=== PATIENT | female | born 1950 | race Caucasian/White ===

== ENCOUNTER → 2018-04-24 | Outpatient (CLI) | payer MEDICARE, BC ==
--- NOTE | 2018-04-24 15:28 | RADIOLOGY REPORT (SQ) ---
EXAM DESCRIPTION: U/S RETROPERITON (RENAL/AORTA) COMPLETED DATE/TIME: 04/24/2018 3:12 pm REASON FOR STUDY: N18.3 CHRONIC KIDNEY DISEASE, STAGE 3 (MODERATE) N18.3 CHRONIC KIDNEY DISEASE, ST AGE 3 (MODERATE) COMPARISON: None. TECHNIQUE: Dynamic and static grayscale images acquired of the kidneys and bladder and recorded on P ACS. Additional selected color Doppler and spectral images recorded. LIMITATIONS: None. FINDINGS: RIGHT KIDNEY: Small, 8.4 cm. Cortical thinning. Normal echogenicity. No solid or suspicio us masses. Mild hydronephrosis. No calcifications. LEFT KIDNEY: Normal size, 9.9 cm. Normal echogenicity. No solid or suspicious masses. No hydronephr osis. No calcifications. BLADDER: No masses. Bilateral ureteral jets are seen. OTHER FINDINGS: No other significant finding. IMPRESSION: The right kidney is smaller with cortical thinning. There is mild hydronephrosis on the right. No other abnormality is seen. Bilateral ureteral jets are seen in the bladder. TECHNICAL DOCUMENTATION: JOB ID: [id number] [employer]- All Rights Reserved Reading location - IP/workstation name: [email or web address]
== END ==
LOC: RAD 16:29
PROVIDERS: ATTEND Internal Medicine Nephrology
DX: I12.9 Hypertensive chronic kidney disease with stage 1 through stage 4 chronic kidney disease, or unspecified chronic kidney disease (principal); N18.3 Chronic kidney disease, stage 3 (moderate); N13.30 Unspecified hydronephrosis
CPT/HCPCS: 76770

== ENCOUNTER → 2018-09-02 | Outpatient (CLI) | payer BC ==
--- NOTE | 2018-09-02 13:45 | RADIOLOGY REPORT (SQ) ---
EXAM DESCRIPTION: CT ABD/PELVIS NO ORAL OR IV COMPLETED DATE/TIME: 09/02/2018 1:05 pm REASON FOR STUDY: HYDRONEPHROSIS (N13.30) N13.30 UNSPECIFIED HYDRONEPHROSIS COMPARISON: None. TECHNIQUE: CT scan of the abdomen and pelvis performed without intravenous or oral contrast. Images reviewed with lung, soft tissue, and bone windows. Reconstructed coronal and sagittal MPR images revi ewed. All images stored on PACS. All CT scanners at this facility use dose modulation, iterative reconstruction, and/or weight based d osing when appropriate to reduce radiation dose to as low as reasonably achievable (ALARA). [facility]: Dose Right [facility]: CareDose [facility]: Dose Right [facility]: Teradose 4D [facility]: Interse RADIATION DOSE: CT Rad equipment meets quality standard of care and radiation dose reduction techniq ues were employed. CTDIvol: 2.5 mGy. DLP: 114 mGy-cm.mGy. LIMITATIONS: None. FINDINGS: LOWER CHEST: No significant findings. No nodules or infiltrates. NON-CONTRASTED LIVER, SPLEEN, ADRENALS: Evaluation limited by lack of IV contrast. No identified sign ificant masses. PANCREAS: No masses. No peripancreatic inflammatory changes. GALLBLADDER: Not visualized. RIGHT KIDNEY AND URETER: No suspicious masses. Assessment limited by lack of IV contrast. No signif icant calcifications. No hydronephrosis or hydroureter. LEFT KIDNEY AND URETER: No suspicious masses. Assessment limited by lack of IV contrast. Mild nephr ocalcinosis coronal image 47. No hydronephrosis or hydroureter. AORTA AND RETROPERITONEUM: No aneurysm. No retroperitoneal masses or adenopathy. BOWEL AND PERITONEAL CAVITY: No obvious masses or inflammatory changes. No free fluid. APPENDIX: Not visualized. PELVIS, BLADDER, AND ABDOMINAL WALL:No abnormal masses. No free fluid. Bladder normal. BONES: No significant findings. OTHER: No other significant finding. IMPRESSION: Mild nephrocalcinosis on the left. No ureteral or bladder calculi. COMMENT: Quality ID # [id number]: Final reports with documentation of one or more dose reduction techniques (e.g., Automated exposure control, adjustment of the mA and/or kV according to patient size, use of iterative reconstruction technique) TECHNICAL DOCUMENTATION: JOB ID: [id number] [employer]- All Rights Reserved Reading location - IP/workstation name: [email or web address]
== END ==
LOC: RAD 12:51
PROVIDERS: ATTEND Urology
DX: N13.30 Unspecified hydronephrosis (principal); E83.59 Other disorders of calcium metabolism; N29 Other disorders of kidney and ureter in diseases classified elsewhere
CPT/HCPCS: 74176

== ENCOUNTER 2018-09-19 13:08 | Emergency (ER) | payer BC ==
--- NOTE | 2018-09-19 14:46 | ER Document Report ---
ED Medical Screen (RME) - General Chief Complaint: Abnormal Lab Results Stated Complaint: ABNORMAL LABS Time Seen by Provider: 09/19/18 14:44 Primary Care Provider: JESENIA RINALDI MD [Primary Care Provider] - Follow up as needed Notes: 68-year-old female presents to ED for complaint of abnormal labs. She states her doctor's office called her today and told her that she had low sodium. She states she is also having diarrhea and has chronic diarrhea this is not new. She also has kidney problems and the only trickle history she has is a tracheotomy as a child. She states she smokes 4 cigarettes a day does not drink alcohol or do any kind of street drugs she is retired and lives alone. Patient is alert oriented respirations regular and unlabored speaking in full sentences walks with even steady gait. I have greeted and performed a rapid initial assessment of this patient. A comprehensive ED assessment and evaluation of the patient, analysis of test results and completion of medical decision making process will be conducted by an additional ED providers. Dictation of this chart was performed using voice recognition software; therefore, there may be some unintended grammatical errors. TRAVEL OUTSIDE OF THE [place] IN LAST 30 DAYS: No - Related Data Allergies/Adverse Reactions: Penicillins Allergy (Verified 09/19/18 13:46) Physical Exam - Vital signs Vitals: Temp Pulse Resp BP Pulse Ox 98.1 F 58 L 16 191/73 H 97 09/19/18 13:35 09/19/18 13:35 09/19/18 13:35 09/19/18 13:35 09/19/18 13:35 Course - Vital Signs Vital signs: Temp Pulse Resp BP Pulse Ox 98.1 F 58 L 16 191/73 H 97 09/19/18 13:35 09/19/18 13:35 09/19/18 13:35 09/19/18 13:35 09/19/18 13:35 Doctor's Discharge - Discharge Referrals: JESENIA RINALDI MD [Primary Care Provider] - Follow up as needed
[2018-09-19 15:19] LABS: ABSOLUTE BASOPHILS # (AUTO) 0.1 10^3/uL (0.0-0.2); ABSOLUTE EOSINOPHILS # (AUTO) 0.1 10^3/uL (0.0-0.6); ABSOLUTE LYMPHOCYTES (AUTO) 1.7 10^3/uL (0.5-4.7); ABSOLUTE MONOCYTES (AUTO) 0.7 10^3/uL (0.1-1.4); ABSOLUTE NEUT (AUTO) 3.7 10^3/uL (1.7-8.2); BASOPHILS % (AUTO) 0.8 % (0-2); EOSINOPHILS % (AUTO) 1.8 % (0-6); HEMATOCRIT 37.1 % (36.0-47.0); HEMOGLOBIN 12.6 g/dL (12.0-15.5); LYMPHOCYTES % (AUTO) 27.4 % (13-45); MEAN CORPUSCULAR HEMOGLOBIN 29.5 pg (27.0-33.4); MEAN CORPUSCULAR VOLUME 87 fl (80-97); MONOCYTES % (AUTO) 11.1 % (3-13); PLATELET COUNT 257 10^3/uL (150-450); RED BLOOD COUNT 4.28 10^6/uL (3.72-5.28); RED CELL DISTRIBUTION WIDTH 13.6 % (11.5-14.0); SEGMENTED NEUTROPHILS % (AUTO) 58.9 % (42-78); TOTAL CELLS COUNTED % (AUTO) 100 %; WHITE BLOOD COUNT 6.3 10^3/uL (4.0-10.5)
[2018-09-19 15:24] LABS: APPEARANCE,URINE CLEAR; BILIRUBIN,URINE NEGATIVE (NEGATIVE); COLOR,URINE STRAW; GLUCOSE, URINE NEGATIVE (NEGATIVE); KETONES,URINE NEGATIVE (NEGATIVE); LEUKOCYTE ESTERASE,URINE NEGATIVE (NEGATIVE); NITRITE,URINE NEGATIVE (NEGATIVE); PROTEIN,URINE 30 mg/dL (NEGATIVE); URINE SPECIFIC GRAVITY 1.005; UROBILINOGEN,URINE NEGATIVE mg/dL (<2.0)
[2018-09-19 15:40] LABS: ALANINE AMINOTRANSFERASE 41 U/L (9-52); ALBUMIN 4.7 g/dL (3.5-5.0); ALKALINE PHOSPHATASE 73 U/L (38-126); ANION GAP 9 (5-19); ASPARTATE AMINO TRANSFERASE 47 U/L (14-36); BILIRUBIN,DIRECT 0.1 mg/dL (0.0-0.4); BILIRUBIN,TOTAL 0.5 mg/dL (0.2-1.3); BLOOD UREA NITROGEN 19 mg/dL (7-20); CALCIUM 9.7 mg/dL (8.4-10.2); CARBON DIOXIDE 30 mmol/L (22-30); CHLORIDE 93 mmol/L (98-107); GLUCOSE 95 mg/dL (75-110); POTASSIUM 3.6 mmol/L (3.6-5.0); SODIUM 131.7 mmol/L (137-145); TOTAL PROTEIN 7.4 g/dL (6.3-8.2)
--- NOTE | 2018-09-19 16:35 | RADIOLOGY REPORT (SQ) ---
EXAM DESCRIPTION: CHEST 2 VIEWS COMPLETED DATE/TIME: 09/19/2018 4:23 pm REASON FOR STUDY: hyponatremia, smoking hx, ?lung CA COMPARISON: 03/16/2011 EXAM PARAMETERS: NUMBER OF VIEWS: two views TECHNIQUE: Digital Frontal and Lateral radiographic views of the chest acquired. RADIATION DOSE: NA LIMITATIONS: none FINDINGS: LUNGS AND PLEURA: The lung abdi are hyperexpanded. No consolidation or effusions. No p neumothorax. MEDIASTINUM AND HILAR STRUCTURES: No masses or contour abnormalities. HEART AND VASCULAR STRUCTURES: Heart normal size. No evidence for failure. BONES: No acute findings. HARDWARE: None in the chest. OTHER: No other significant finding. IMPRESSION: COPD. No acute findings. TECHNICAL DOCUMENTATION: JOB ID: [id number] [employer]- All Rights Reserved Reading location - IP/workstation name: [email or web address]
[2018-09-19 16:59] VITALS: BP 177/87
--- NOTE | 2018-09-19 19:07 | ER Document Report ---
Entered by VERN TURNER SCRIBE 09/19/18 1608 Acting as scribe for:ESTHELA CALDERON DO ED General - General Chief Complaint: Abnormal Lab Results Stated Complaint: ABNORMAL LABS Time Seen by Provider: 09/19/18 14:44 Primary Care Provider: JESENIA RINALDI MD [NO LOCAL MD] - Follow up as needed Mode of Arrival: Ambulatory Information source: Patient Notes: 68-year-old female that presents to the emergency department today with complaints of low sodium on routine outpatient labs. Patient does admit to drinking at least a gallon of water a day on a regular basis. Patient states that yesterday she cut her grass for 3 hours using a push mower so she had been sweating excessively as well. Patient states she sometimes drink Gatorade but h as not recently. Patient states she has a headache but denies any vomiting or confusion. Patient states she additionally works out on a treadmill for at least an hour a day every day. TRAVEL OUTSIDE OF THE [place] IN LAST 30 DAYS: No - Related Data Allergies/Adverse Reactions: Penicillins Allergy (Verified 09/19/18 13:46) Past Medical History - General Information source: Patient - Social History Smoking Status: Current Every Day Smoker Cigarette use (# per day): Yes Frequency of alcohol use: None Drug Abuse: None Lives with: Family Family History: Reviewed & Not Pertinent Patient has suicidal ideation: No Patient has homicidal ideation: No - Past Medical History Cardiac Medical History: Reports: Hx Hypercholesterolemia, Hx Hypertension Surgical Hx: Negative Review of Systems - Review of Systems Constitutional: See HPI, Other - low sodium on outpatient labs EENT: No symptoms reported Cardiovascular: No symptoms reported Respiratory: No symptoms reported Gastrointestinal: Diarrhea - Occasional intermittent diarrhea for the past 6 months. None recently.. denies: Vomiting Genitourinary: No symptoms reported Female Genitourinary: No symptoms reported Musculoskeletal: No symptoms reported Skin: No symptoms reported Hematologic/Lymphatic: No symptoms reported Neurological/Psychological: See HPI, Headaches -: Yes All other systems reviewed and negative Physical Exam - Vital signs Vitals: Temp Pulse Resp BP Pulse Ox 98.1 F 58 L 16 191/73 H 97 09/19/18 13:35 09/19/18 13:35 09/19/18 13:35 09/19/18 13:35 09/19/18 13:35 Interpretation: Hypertensive - Notes Notes: PHYSICAL EXAM GENERAL: Alert, interacts well. No acute distress. HEAD: Normocephalic, atraumatic. EYES: Pupils equal, round, and reactive to light. Extraocular movements intact. ENT: Oral mucosa moist, tongue midline. NECK: Full range of motion. Supple. Trachea midline. LUNGS: Clear to auscultation bilaterally, no wheezes, rales, or rhonchi. No respiratory distress. HEART: Regular rate and rhythm. No murmurs, gallops, or rubs. ABDOMEN: Soft, non-tender. Non-distended. Bowel sounds present in all 4 quadrants. No guarding, rigidity, or rebound. EXTREMITIES: Moves all 4 extremities spontaneously. No edema, radial and dorsalis pedis pulses 2/4 bilaterally. No cyanosis. NEUROLOGICAL: Alert and oriented x3. Normal speech. PSYCH: Normal affect, normal mood. SKIN: Warm, dry, normal turgor. No rashes or lesions noted. Course - Re-evaluation Re-evalutation: 09/19/18 16:46 Chest x-ray shows COPD. Blood work here shows a sodium of 131.7, patient is not having any acute mental status changes, patient admits that she drinks a gallon or more of water per day, she does not use any electrolyte-containing drinks despite the fact that she push mowed in the heat yesterday for over 3 hours and then is on the treadmill for an hour every day. I suggested the patient that she may wish to consider exchanging at least 1 of her 16 ounce bottles of water for a 16 ounce bottle of Gatorade in order to maintain her sodium normally. Chest x-ray was performed due to new hyponatremia in a smoker. No evidence of lung cancer. Patient is discharged back to home to follow-up with her primary care physician and recommended to have her sodium rechecked in approximately 2 weeks. - Vital Signs Vital signs: Temp Pulse Resp BP Pulse Ox 98.1 F 57 L 16 177/87 H 100 09/19/18 16:59 09/19/18 16:59 09/19/18 16:59 09/19/18 16:59 09/19/18 16:59 - Laboratory Result Diagrams: 09/19/18 15:04 09/19/18 15:04 Laboratory results interpreted by me: 09/19/18 09/19/18 15:04 15:04 Sodium 131.7 L Chloride 93 L Est GFR (Non-Af Amer) 56 L AST 47 H Urine Protein 30 H Discharge - Discharge Clinical Impression: Hyponatremia Condition: Stable Disposition: HOME, SELF-CARE Additional Instructions: Today sodium level was low. This is likely related to the large amount of exertion during which you are sweating associated with drinking a gallon or more of water a day. I would suggest you drink approximately 16 ounces of an electrolyte containing solution such as Gatorade or Powerade or its generic equivalent on days when you are exerting herself and sweating for more than an hour. It is not necessary to drink more than a gallon of water a day. Please follow-up with your primary care doctor to have your sodium rechecked in approximately 2 weeks. Referrals: JESENIA RINALDI MD [NO LOCAL MD] - Follow up as needed I personally performed the services described in the documentation, reviewed and edited the documentation which was dictated to the scribe in my presence, and it accurately records my words and actions.
== END 2018-09-19 16:59 | disposition home or self-care (01) ==
LOC: ER 13:08
DX: E87.1 Hypo-osmolality and hyponatremia (principal); R51 Headache; I10 Essential (primary) hypertension; F17.210 Nicotine dependence, cigarettes, uncomplicated
CPT/HCPCS: 36415; 71046; 80053; 81001; 85025; 99283